=== PATIENT | female | born 1995 | race Hispanic/Latino ===

== ENCOUNTER → 2023-05-28 | Emergency (ER) | payer OTHER ==
--- OUTSIDE RECORDS SUMMARY | 2023-05-28 00:47 | XMS REPORT | Continuity of Care Document ---
Author Name Unknown Address [address] [facility] [address] [place] [address] [facility] thconnect Address [address] [facility] [address] [place] [address] Care Team Providers Care Manager Knowledge Name Role Phone BETINA WRIGHT Primary Care Physician Unavailab BRITNEY Calvert Attending Clinician Unavailable Tyrone JOINER, Shaila Etienne Attending Clinician Unavailab BHUMI Farooq Attending Clinician Unavailable Only, Ang Db Test Attending Clinician UnavailBhumi Botello PA-C Attending Clinician [phone] Unknown, Attending Attending Clinician Unavailab Rani Martinez Attending Clinician [phone] RANI SANCHEZ Attending Clinician Unavailable UNKNOWN, ATTENDING Attending Clinician Unavailab Osvaldo Enriquez Attending Clinician + [phone] OSVALDO REED Attending Clinician Unavailab Betina Klein Attending Clinician [phone] BETINA WRIGHT Attending Clinician Unavailable Payers Payer Name Policy Type Policy Number Effective Date Expirati on Date Source [facility] [id number] 2018 00:00:00 Problems Condition Name Condition Details Condition Category Status Onset Date Resolution Date Last Treatment Date Treating Clinician Comments Source Ruptured, membranes, premature Ruptured, membranes, premature Disease Active 09-24 00:00: 00 [facility] 39 weeks gestation of 39 weeks gestation of Disease Active 09-24 00:00: 00 [facility] heart decelerati on heart decelerati on Disease Active 09-24 00:00: 00 [facility] Active labor at term Active labor at term Disease Active 09-24 00:00: 00 [facility] Liveborn infant, of [place] , born in hospital by vaginal delivery Liveborn infant, of [place] , born in hospital by vaginal delivery Disease Active 09-24 00:00: 00 [facility] Allergies, Adverse Reactions, Alerts Allergy Name Allergy Type Status Severity Reaction(s) Onset Date Inactive Date Treating Clinician Comments Source Amoxicil ambrocio Propensi ty to adverse reaction s Active Hives 2014-05 00:00: 00 [facility] AMOXICIL AMBROCIO DRUG INGREDI Active Hives 2014-05 00:00: 00 [facility] Social History Social Habit Start Date Stop Date Quantity Comments Source Exposure to SARS-CoV-2 (event) Not sure [facility] History SDOH Alcohol Comment [place] [facility] Alcohol intake 2020-12-18 00:00:00 2020-12-18 00:00:00 Current drinker of alcohol (finding) [facility] Tobacco use and exposure 2020-12-18 00:00:00 2020-12-18 00:00:00 Never used [facility] History SDOH Alcohol Frequency 2019-03-29 00:00:00 2019-03-29 00:00:00 2 [facility] History SDOH Alcohol Std Drinks 2019-03-29 00:00:00 2019-03-29 00:00:00 1 [facility] History SDOH Alcohol Binge 2019-03-29 00:00:00 2019-03-29 00:00:00 1 [facility] Sex Assigned At 1995 00:00:00 1995 00:00:00 [facility] Smoking Status Start Date Stop Date Source Never smoker [facility] Medications Ordered Medication Name Filled Medication Name Start Date Stop Date Current Medication? Ordering Clinician Indication Dosage Frequency Signature (SIG) Comments Components Source No known medications 12-18 13:19: 44 No [facility] No known medications 12-18 13:19: 44 No [facility] No known medications 12-18 13:19: 44 No [facility] No known medications 12-18 13:19: 44 No [facility] bromphenira mine-pseudo ephedrine-D M (BROMFED DM) 2-30-10 mg/5 mL syrup 12-18 00:00: 00 12-29 04:59 :00 No [id number] 5mL Take 5 mL by mouth 4 (four) times daily as needed for Congestion /Allergies or Cough for up to 10 days. [facility] bromphenira mine-pseudo ephedrine-D M (BROMFED DM) 2-30-10 mg/5 mL syrup 12-18 00:00: 00 12-29 04:59 :00 No [id number] 5mL Take 5 mL by mouth 4 (four) times daily as needed for Congestion /Allergies or Cough for up to 10 days. [facility] azithromyci n (ZITHROMAX Z-TRUDI) 250 mg tablet 12-18 00:00: 00 12-24 04:59 :00 No [id number] 250mg Take 1 tablet by mouth daily for 5 days. Take 500 mg day 1, then 250 mg days 2 to 5. [facility] azithromyci n (ZITHROMAX Z-TRUDI) 250 mg tablet 12-18 00:00: 12-24 04:59 :00 No [id number] 250mg Take 1 tablet by mouth daily for 5 days. Take 500 mg day 1, then 250 mg days 2 to 5. [facility] bromphenira mine-pseudo ephedrine-D M (BROMFED DM) 2-30-10 mg/5 mL syrup 2-18 00:00: 00 05:59 :00 No [id number] 5mL Take 5 mL by mouth 4 (four) times daily as needed for Cold symptoms for up to 10 days. [facility] bromphenira mine-pseudo ephedrine-D M (BROMFED DM) 2-30-10 mg/5 mL syrup 2020-0 2-18 00:00: 05:59 :00 No [id number] 5mL Take 5 mL by mouth 4 (four) times daily as needed for Cold symptoms for up to 10 days. [facility] bromphenira mine-pseudo ephedrine-D M (BROMFED DM) 2-30-10 mg/5 mL syrup 2019-0 2-18 00:00: 05:59 :00 No [id number] 5mL Take 5 mL by mouth 4 (four) times daily as needed for Cold symptoms for up to 10 days. [facility] bromphenira mine-pseudo ephedrine-D M (BROMFED DM) 2-30-10 mg/5 mL syrup 2019-0 2-18 00:00: 05:59 :00 No [id number] 5mL Take 5 mL by mouth 4 (four) times daily as needed for Cold symptoms for up to 10 days. [facility] oseltamivir (TAMIFLU) 75 mg capsule 2019-0 2-18 00:00: 07-09 05:59 :00 No [id number] 75mg Take 1 capsule by mouth 2 (two) times daily for 5 days. [facility] oseltamivir (TAMIFLU) 75 mg capsule 2019-0 2-18 00:00: 07-09 05:59 :00 No [id number] 75mg Take 1 capsule by mouth 2 (two) times daily for 5 days. [facility] oseltamivir (TAMIFLU) 75 mg capsule 2019-0 2-18 00:00: 00 07-09 05:59 :00 No [id number] 75mg Take 1 capsule by mouth 2 (two) times daily for 5 days. [facility] oseltamivir (TAMIFLU) 75 mg capsule 2019-0 2-18 00:00: 00 07-09 05:59 :00 No [id number] 75mg Take 1 capsule by mouth 2 (two) times daily for 5 days. [facility] azithromyci n 250 mg tablet 2018-05 00:00: 00 Yes [id number] 250mg Take 1 tablet by mouth daily. Take 500 mg day 1, then 250 mg days 2 to 5. [facility] azithromyci n 250 mg tablet 2018-05 00:00: 00 Yes [id number] 250mg Take 1 tablet by mouth daily. Take 500 mg day 1, then 250 mg days 2 to 5. [facility] azithromyci n 250 mg tablet 2018-05 00:00: 00 Yes [id number] 250mg Take 1 tablet by mouth daily. Take 500 mg day 1, then 250 mg days 2 to 5. [facility] azithromyci n 250 mg tablet 2018-05 00:00: 00 Yes [id number] 250mg Take 1 tablet by mouth daily. Take 500 mg day 1, then 250 mg days 2 to 5. [facility] azithromyci n 250 mg tablet 2018-05 00:00: 00 12-18 00:00 :00 No [id number] 250mg Take 1 tablet by mouth daily. Take 500 mg day 1, then 250 mg days 2 to 5. [facility] azithromyci n 250 mg tablet 2018-05 00:00: 00 12-18 00:00 :00 No [id number] 250mg Take 1 tablet by mouth daily. Take 500 mg day 1, then 250 mg days 2 to 5. [facility] Vital Signs Vital Name Observation Time Observation Value Comments S cyrus Systolic blood pressure 2020-12-18 16:42:00 122 mm[Hg] [facility] Diastolic blood pressure 2020-12-18 16:42:00 82 mm[Hg] [facility] Heart rate 2020-12-18 16:42:00 103 /min [facility] Body temperature 2020-12-18 16:42:00 37.83 Luci [facility] Body height 2020-12-18 16:42:00 188 cm [facility] Body weight 2020-12-18 16:42:00 61.236 kg [facility] BMI 2020-12-18 16:42:00 17.33 kg/m2 [facility] Oxygen saturation in Arterial blood by Pulse oximetry 2020-12-18 16:42:00 97 /min [facility] Systolic blood pressure 2019-07-03 18:26:00 113 mm[Hg] [facility] Diastolic blood pressure 2019-07-03 18:26:00 79 mm[Hg] [facility] Heart rate 2019-07-03 18:26:00 86 /min [facility] Body temperature 2019-07-03 18:26:00 37.39 Luci [facility] Body weight 2019-07-03 18:26:00 57.607 kg [facility] BMI 2019-07-03 18:26:00 24.00 kg/m2 [facility] Oxygen saturation in Arterial blood by Pulse oximetry 2019-07-03 18:26:00 98 /min [facility] Procedures Procedure Date / Time Performed Performing Clinicia n Source POCT FLU A AND B (MOLECULAR) 2019-07-03 00:00:00 Betina Wright [facility] Encounters Start Date/Time End Date/Time Encounter Type Admission Type Attending Clinicians Care Facility Care Department Encounter ID Source 2023-06-03 14:00:00 2023-06-03 14:00:00 Outpatient BRITNEY [facility] [id number] [facility] 2021-05-04 00:00:00 2021-05-04 00:00:00 Letter (Out) Shaila Hansen [facility] [id number] [facility] 2021-05-03 17:00:00 2021-05-03 17:00:00 Outpatient BHUMI BERGER [facility] [id number] [facility] 2021-05-03 15:15:00 2021-05-03 15:30:00 Laboratory Only Only, Ang Db Test Bhumi Montes [facility] [id number] [id number] [facility] 2021-05-03 15:15:00 2021-05-03 15:15:00 Outpatient R BHUMI MONTES [facility] [id number] [facility] 2021-05-01 15:30:00 2021-05-01 15:45:00 Laboratory Only Only, Ang Db Test Unknown, Attending Andrea [facility] [id number] [id number] [id number] [id number] [facility] 2021-05-01 15:30:00 2021-05-01 15:30:00 [facility] [id number] 2021-04-05 10:00:00 2021-04-05 10:00:00 Outpatient R UNKNOWN, ATTENDING [facility] [id number] [facility] 2021-04-05 09:34:21 2021-04-05 09:49:21 Laboratory Only Only, Ang Db Test NasreenAlvina watermanOsvaldo [facility] [id number] [id number] [id number] [facility] 2021-04-05 09:30:00 2021-04-05 09:30:00 Outpatient R OSVALDO REED [facility] [id number] [facility] 2020-12-18 11:08:24 2020-12-18 12:05:00 Office Visit Betina Wright [facility] [id number] [id number] [id number] [facility] 2020-12-18 11:30:00 2020-12-18 11:30:00 Outpatient R BETINA WRIGHT [facility] [id number] [facility] 2019-07-03 12:06:54 2019-07-03 13:03:08 [facility] [id number] [facility] 2019-07-03 00:00:00 2019-07-03 00:00:00 [facility] (Out[facility] [id number] [facility] Results Test Description Test Time Test Comments Results Result Co mments Source [facility]-07-03 19:00:00* Test Item Value Reference Range Interpretation Comme nts POCT INFLUENZA A (test code = 3840) pos Negative - Negative POCT INFLUENZA B (test code = 3841) neg Negative - Negative [facility] FLU A AND B (MOLECULAR)2019-07-03 19:00:00* Test Item Value Reference Range Interpretation Comme nts POCT INFLUENZA A (test code = 3840) pos Negative - Negative POCT INFLUENZA B (test code = 3841) neg Negative - Negative [facility]
[2023-05-28 02:05] LABS: Specific Gravity > 1.030 (1.005-1.030); Urine Bacteria None Seen /HPF (<20); Urine Bilirubin NEGATIVE (Negative); Urine Blood 3+ (OVER) (Negative); Urine Clarity Extremely Turbid (Clear); Urine Color Light-Yellow (Yellow); Urine Glucose NEGATIVE (Negative); Urine Mucus 1+ /HPF (None Seen); Urine Protein TRACE (Negative); Urine Urobilinogen Normal (Normal)
[2023-05-28 02:20] LABS: Hematocrit 38.1 % (36.0-45.0); MCV 85.7 fL (80-100); Platelets 245 thou/uL (152-406); RBC Red Blood Cell Count 4.45 M/uL (3.86-4.86)
[2023-05-28 02:21] LABS: Lymphocytes % 28.8 % (15.3-44.8); MPV 10.2 fL (7.6-11.3)
[2023-05-28 02:22] LABS: Absolute Lymphocytes (CBC) 2.5 K/uL (0.7-4.9)
[2023-05-28 02:43] LABS: Albumin 4.1 g/dL (3.4-5.0); Bilirubin Total 0.4 mg/dL (0.2-1.0); Potassium 3.5 mEq/L (3.5-5.1)
--- NOTE | 2023-05-28 03:27 | EDPHYS ---
Physician Documentation [facility] Name: Belen Gonzalez Age: 28 yrs Sex: Female : 1995 Arrival Date: 05/28/2023 Time: 00:44 Bed 7 Private MD: ED Physician Bill Crook HPI: 05/28 02:08 This 28 yrs old Female presents to ER via Ambulatory with complaints of sp4 Vaginal Bleeding, + Preg <12wks. 02:08 28-year-old female without significant past medical history -0-0-2, EGA 8 weeks 2 sp4 days by LMP. LMP 03/31/2023. Presents with acute onset of painless vaginal bleeding starting 9:30 PM with passing of single clot. Patient denied pain or cramps.. [facility]ER: 01:09 LMP 03/31/2023, unknown lg3 Historical: - Allergies: 01:09 Amoxicillin; lg3 - Home Meds: 01:09 None [Active]; lg3 - PMHx: 01:09 None; lg3 - PSHx: 01:09 None; lg3 - Immunization history:: Adult Immunizations up to date, Client reports receiving the 2nd dose of the Covid vaccine, Flu vaccine is not up to date. - Social history:: Smoking status: Patient denies any tobacco usage or history of. Patient/guardian denies using alcohol, street drugs. - Family history:: not pertinent. ROS: 02:08 Constitutional: Negative for fever, chills, and weight loss, Eyes: Negative for injury, sp4 pain, redness, and discharge, : Negative for injury, discharge, and swelling, positive for painless vaginal bleeding and passing of the clots 02:08 All other systems are negative, Exam: 02:08 Constitutional: This is a well developed, well nourished patient who is awake, alert, sp4 and in no acute distress. Head/Face: Normocephalic, atraumatic. Eyes: Pupils equal round and reactive to light, extra-ocular motions intact. Lids and lashes normal. Conjunctiva and sclera are not injected. Cornea within normal limits. Periorbital areas with no swelling, redness, or edema. ENT: Nares patent. No nasal discharge, no septal abnormalities noted. Tympanic membranes are normal and external auditory canals are clear. Oropharynx with no redness, swelling, or masses, exudates, or evidence of obstruction, uvula midline. Mucous membranes moist. Neck: Trachea midline, no thyromegaly or masses palpated, and no cervical lymphadenopathy. Supple, full range of motion without nuchal rigidity, or vertebral point tenderness. Chest/axilla: Normal chest wall appearance and motion. Nontender with no deformity. No lesions are appreciated. Cardiovascular: Regular rate and rhythm with a normal S1 and S2. No gallops, murmurs, or rubs. Normal PMI, no JVD. No pulse deficits. Respiratory: Lungs have equal breath sounds bilaterally, clear to auscultation and percussion. No rales, rhonchi or wheezes noted. No increased work of breathing, no retractions or nasal flaring. Abdomen/GI: Soft, non-tender, with normal bowel sounds. No distension or tympany. No guarding or rebound. No evidence of tenderness throughout. Back: No spinal tenderness. No costovertebral tenderness. There is sacral decubitus ulcer that is covered by the wound VAC. Skin: Warm, dry with normal turgor. Normal color with no rashes, no lesions, and no evidence of cellulitis. MS/ Extremity: Pulses equal, no cyanosis. Neurovascular intact. Full, normal range of motion. Neuro: Awake and alert, GCS 15, oriented to person, place, time, and situation. Cranial nerves II-XII grossly intact. Motor strength 5/5 in all extremities. Sensory grossly intact. Psych: Awake, alert, with orientation to person, place and time. Behavior, mood, and affect are within normal limits Vital Signs: 01:05 BP 129 / 89; Pulse 68; Resp 17 S; Temp 98.6(O); Pulse Ox 100% on R/A; Weight 59.87 kg lg3 (R); Height 5 ft. 1 in. (R); 03:24 BP 118 / 82; Pulse 77; Resp 20; Pulse Ox 100% ; la4 01:05 Body Mass Index 24.94 (59.87 kg, 154.94 cm) lg3 [place] Coma Score: 01:57 Eye Response: spontaneous(4). Motor Response: obeys commands(6). Verbal Response: nw1 oriented(5). Total: 15. 03:24 Eye Response: spontaneous(4). Motor Response: obeys commands(6). Verbal Response: la4 oriented(5). Total: 15. MDM: 01:10 Patient medically screened. sp4 03:20 ED course: EXAM: US First Trimester , Transabdominal CLINICAL HISTORY: bleed sp4 in TECHNIQUE: Real-time transabdominal obstetrical ultrasound of the maternal pelvis and a first trimester with image documentation. COMPARISON: No relevant prior studies available. FINDINGS: Gestation: No demonstrable intrauterine gestational sac. Uterus/cervix: The uterus is anteverted and measures 9.7 x 6 6 cm. The endometrial stripe measures 11 mm in thickness. 2.5 cm subserosal fibroid at the posterior uterine body. Ovaries: Right and left ovarian measurements are 2.6 x 2 x 1.8 cm and 2.4 x 2 x 2.7 cm, respectively. No mass. Free fluid: No free fluid. IMPRESSION: No demonstrable intrauterine . In light of the clinical history of positive test, the findings may represent sequelae of recent spontaneous . The possibility of very early intrauterine or extrauterine cannot be excluded. Careful follow-up including correlation with beta-hCG levels is recommended.. 03:24 Differential diagnosis: ectopic , Vaginal bleeding in . Data sp4 reviewed: vital signs, nurses notes, lab test result(s), Beta HC CBC, hepatic panel, urinalysis, radiologic studies, ultrasound. Consideration of Admission/Observation Escalation of care including admission/observation considered. ED course: Ultrasound report reveals no intrauterine , but noted hCG level of 20 patient most likely has incomplete miscarriage. Will advise hCG level in 48 hours here or with [facility] office.. ED course: No sexual intercourse advised for the next 2 weeks.. 05/28 01:10 Order name: CBC with Diff; Complete Time: 03:20 sp4 05/28 01:10 Order name: CMP; Complete Time: 03:20 sp4 05/28 01:10 Order name: Urinalysis w/ reflexes; Complete Time: 03:20 sp4 05/28 01:10 Order name: HCG-Quantitative; Complete Time: 03:20 sp4 05/28 01:10 Order name: Abo/rh Typing; Complete Time: 03:20 sp4 05/28 01:45 Order name: Pelvis Complete EDMS 05/28 01:10 Order name: IV Saline Lock; Complete Time: 01:47 sp4 05/28 01:10 Order name: Labs collected and sent; Complete Time: 01:47 sp4 Administered Medications: No medications were administered Disposition Summary: 05/28/23 03:26 Discharge Ordered Problem: new sp4 Symptoms: have improved sp4 Condition: Stable sp4 Diagnosis - Incomplete spontaneous without complication sp4 Followup: sp4 - With: Private Physician - When: 7 - 10 days - Reason: Recheck today's complaints Discharge Instructions: - Discharge Summary Sheet sp4 - Miscarriage, [id number] sp4 Forms: - Patient Portal Instructions sp4 Signatures: Dispatcher [employer] Madai Cisneros RN RN lg3 Bill Crook MD MD sp4 Corrections: (The following items were deleted from the chart) 01:10 01:09 Allergies: No Known Allergies; lg3 lg3 01:45 01:10 OB Limited+US.RAD.BRZ ordered. EDMS EDMS
--- NOTE | 2023-05-28 03:27 | ER ---
Nurse's Notes [facility] Name: Belen Gonzalez Age: 28 yrs Sex: Female : 1995 Arrival Date: 05/28/2023 Time: 00:44 Bed 7 Private MD: Diagnosis: Incomplete spontaneous without complication Presentation: 05/28 01:05 Chief complaint: Patient states: LMP 11/16. 12/6 light spotting X3 days. positive lg3 test 05/22. light spotting beginning last night. within one hour of spotting, one medium sized clot passed. denies active bleeding or pain at this time. No OB care at this time. Coronavirus screen: Client denies travel out of the [place] in the last 14 days. At this time, the client does not indicate any symptoms associated with coronavirus-19. Ebola Screen: No symptoms or risks identified at this time. Initial Sepsis Screen: Does the patient meet any 2 criteria? No. Patient's initial sepsis screen is negative. Does the patient have a suspected source of infection? No. Patient's initial sepsis screen is negative. Risk Assessment: Do you want to hurt yourself or someone else? Patient reports no desire to harm self or others. Onset of symptoms was May 27, 2023. 01:05 Method Of Arrival: Ambulatory lg3 01:05 Acuity: CARLO 3 lg3 Triage Assessment: 01:09 General: Appears in no apparent distress. comfortable, Behavior is calm, cooperative. lg3 Pain: Denies pain. EENT: No deficits noted. No signs and/or symptoms were reported regarding the EENT system. Neuro: No deficits noted. Dobbins Agitation-Sedation Scale (RASS): 0 - Alert and Calm Level of Consciousness is awake, alert, obeys commands, Oriented to person, place, time, situation. Cardiovascular: No deficits noted. Denies chest pain, shortness of breath, Capillary refill < 3 seconds Clubbing of nail beds is absent JVD is absent Patient's skin is warm and dry. Respiratory: No deficits noted. Airway is patent Respiratory effort is even, unlabored, Respiratory pattern is regular, symmetrical. GI: No deficits noted. No signs and/or symptoms were reported involving the gastrointestinal system. : Reports vaginal spotting with clot X1. Derm: No deficits noted. No signs and/or symptoms reported regarding the dermatologic system. Skin is intact, is healthy with good turgor, Skin is dry, Skin is normal, Skin temperature is warm. Musculoskeletal: No deficits noted. No signs and/or symptoms reported regarding the musculoskeletal system. Circulation, motion, and sensation intact. Range of motion: intact in all extremities. 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 - Social history:: Smoking status: Patient denies any tobacco usage or history of. Patient/guardian denies using alcohol, street drugs. - Family history:: not pertinent. Screenin:57 [facility] ED Fall Risk Assessment (Adult) History of falling in the last 3 months, nw1 including since admission No falls in past 3 months (0 pts) Confusion or Disorientation No (0 pts) Intoxicated or Sedated No (0 pts) Impaired Gait No (0 pts) Mobility Assist Device Used No (0 pt) Altered Elimination No (0 pt) Score/Fall Risk Level 0 - 2 = Low Risk Oriented to surroundings, Maintained a safe environment, Educated pt \\T\\ family on fall prevention, incl call for assistance when getting out of bed, Assessed \\T\\ reinforced patient's understanding of fall precautions, Provided non-skid footwear. Abuse screen: Denies threats or abuse. Denies injuries from another. Nutritional screening: No deficits noted. Tuberculosis screening: No symptoms or risk factors identified. Assessment: 01:29 Reassessment: Report received from triage/charge nurse RHYS Aj. Assumed care of nw1 patient. Patient at this time in [place]. Pending lab work upon return. 01:57 Obstetrical Assessment: General assessment: awake and alert, skin warm and dry, nw1 respirations even and unlabored, Rupture of membranes noted. Patient reports "little clot urination." Pt denies active bleeding, abdominal cramping, or any other symptoms. Pt states "I just wanted to get it checked out". General: Appears in no apparent distress. comfortable, Behavior is calm, cooperative, appropriate for age. Respiratory: No deficits noted. Breath sounds are clear bilaterally. : No signs and/or symptoms were reported regarding the genitourinary system. Derm: No deficits noted. No signs and/or symptoms reported regarding the dermatologic system. Musculoskeletal: No deficits noted. No signs and/or symptoms reported regarding the musculoskeletal system. Vital Signs: 01:05 BP 129 / 89; Pulse 68; Resp 17 S; Temp 98.6(O); Pulse Ox 100% on R/A; Weight 59.87 kg lg3 (R); Height 5 ft. 1 in. (R); 03:24 BP 118 / 82; Pulse 77; Resp 20; Pulse Ox 100% ; la4 01:05 Body Mass Index 24.94 (59.87 kg, 154.94 cm) lg3 Jimmy Coma Score: 01:57 Eye Response: spontaneous(4). Motor Response: obeys commands(6). Verbal Response: nw1 oriented(5). Total: 15. 03:24 Eye Response: spontaneous(4). Motor Response: obeys commands(6). Verbal Response: la4 oriented(5). Total: 15. ED Course: 00:47 Patient arrived in ED. ag3 01:09 Triage completed. lg3 01:09 Arm band placed on left wrist. lg3 01:10 Bill Crook MD is Attending Physician. sp4 01:17 Laron Collado, RN is Primary Nurse. la4 01:45 Pelvis Complete In Process Unspecified. EDMS 01:45 No provider procedures requiring assistance completed. Inserted. nw1 01:45 Inserted saline lock: 20 gauge in right forearm, using aseptic technique. Blood nw1 collected. 01:48 CBC with Diff Sent. la4 01:48 CMP Sent. la4 01:48 Urinalysis w/ reflexes Sent. la4 01:48 HCG-Quantitative Sent. la4 01:48 Abo/rh Typing Sent. la4 01:57 Patient has correct armband on for positive identification. Placed in gown. Bed in low nw1 position. Call light in reach. Side rails up X2. Adult w/ patient. Provided Education on: POC. Door closed. Noise minimized. Warm blanket given. 03:26 IV discontinued, intact, bleeding controlled, No redness/swelling at site. Pressure la4 dressing applied. Administered Medications: No medications were administered Medication: 01:57 VIS not applicable for this client. nw1 Outcome: 03:26 Discharge ordered by . netta 03:31 Discharged to home ambulatory, with significant other, la4 03:31 Condition: stable 03:31 Discharge instructions given to patient, significant other, Instructed on discharge instructions, follow up and referral plans. Demonstrated understanding of instructions, follow-up care, 03:35 Patient left the ED. la4 Signatures: Dispatcher [employer] EDMS Karyn Lyle Lacie, RN RN lg3 Bill Crook MD MD sp4 Laron Collado RN RN la4 Reyna Sams RN RN nw1 Corrections: (The following items were deleted from the chart) 01:10 01:09 Allergies: No Known Allergies; lg3 lg3 01:45 01:40 To radiology for OB Limited[facility][email or web address]. nj4 EDUT
[2023-05-28 06:25] VITALS: BP 118/82; TEMP 98.6; O2SAT 100
--- NOTE | 2023-05-28 18:36 | RAD REPORT ---
EXAM DESCRIPTION: US First Trimester , Transabdominal CLINICAL HISTORY: Bleed in TECHNIQUE: Real-time transabdominal obstetrical ultrasound of the maternal pelvis and a first trimes ter with image documentation. COMPARISON: No relevant prior studies available. FINDINGS: Gestation: No demonstrable intrauterine gestational sac. Uterus/cervix: The uterus is anteverted and measures 9.7 x 6 6 cm. The endometrial stripe measures 11 mm in thickness. 2.5 cm subserosal fibroid at the posterior uterine body. Ovaries: Right and left ovarian measurements are 2.6 x 2 x 1.8 cm and 2.4 x 2 x 2.7 cm, respectivel y. No mass. Free fluid: No free fluid. IMPRESSION: No demonstrable intrauterine . In light of the clinical history of positive p regnancy test, the findings may represent sequelae of recent spontaneous . The possibility of very early intrauterine or extrauterine cannot be excluded. Careful follow-up includin g correlation with beta-hCG levels is recommended. Electronically signed by: Cesario Muñoz MD 05/28/2023 03:01 AM [facility] Due to temporary technical issues with the PACS/Fluency reporting system, reports are being signed by the in house radiologists without review as a courtesy to insure prompt reporting. The interpreting radiologist is fully responsible for the content of the report.
== END ==
LOC: ER 00:44
DX: O03.4 Incomplete spontaneous abortion without complication (principal); Z88.1 Allergy status to other antibiotic agents
CPT/HCPCS: 36415; 76856; 80053; 81001; 84702; 85025; 86900; 86901; 99283